=== PATIENT | male | born 1975 | race Caucasian/White ===

== ENCOUNTER 2024-07-06 13:47 | Emergency (ER) | payer OTHER ==
[2024-07-06] MEDS ORDERED: ACETAMINOPHEN 500 MG TAB ONE (14:23)
[2024-07-06] MEDS ORDERED: methocarbamoL 750 MG TAB ONE (14:23)
[2024-07-06] MEDS ORDERED: LIDOCAINE 4% PATCH ONE (14:23)
[2024-07-06] MEDS ORDERED: KETOROLAC 30 MG/ML INJ ONE (14:23)
--- NOTE | 2024-07-06 14:34 | RAD REPORT ---
EXAMINATION: LUMBAR SPINE 3 VIEWS CLINICAL INDICATION: Male, 49 years old. LBP TECHNIQUE: AP, lateral, focused lateral lumbosacral views of the lumbar spine were obtained. [id number]. COMPARISON: No prior exam. FINDINGS: For purposes of this dictation, it is assumed that there are 5 lumbar type vertebral bodies. ALIGNMENT: There is normal alignment of the lumbar spine. BONES: Mild compression deformity at L2 which appears chronic. Less than 20% loss of height is presen t. No acute compression fracture identified. DISCS: Moderate disc height loss extending from L2-3 through L5-S1. Facet degenerative changes notabl e at L5-S1. SOFT TISSUE: Moderate to large volume of colonic stool IMPRESSION: No acute lumbar spine abnormality. Chronic appearing compression deformity at L2. Degenerative disc d isease.
--- NOTE | 2024-07-06 14:36 | RAD REPORT ---
EXAMINATION: Thoracic Spine Ap/Lat CLINICAL INDICATION: Male, 49 years old. LBP COMPARISON: No prior exam. FINDINGS: No acute fracture. Mild dextroscoliotic curvature centered at T8. Mid thoracic degenerative changes with mild disc height loss and endplate spurring. This is moderate at the T6-7 and T9-10 levels. Other: n/a IMPRESSION: No acute osseous abnormality of the thoracic spine.
--- NOTE | 2024-07-06 14:41 | EDPHYS ---
Physician Documentation [facility] Name: Branden Delcid Age: 49 yrs Sex: Male : 1975 Arrival Date: 07/06/2024 Time: 13:47 Bed 9 Private MD: ED Physician Peter Urrutia HPI: 07/06 14:21 This 49 yrs old Male presents to ER via Ambulatory with complaints of Back ec2 Pain. 14:21 Patient arrives today for chronic low back pain. Patient reports back pain rating to ec2 the bilateral lower extremities. Patient reports no falls injuries or trauma. Patient reports he is on methadone for chronic pain. Patient reports no new falls injuries or trauma.. Historical: - Allergies: 14:04 No Known Allergies; cm10 - Home Meds: 14:04 methadone Oral [Active]; cm10 14:07 Wellbutrin SR 150 mg Oral tablet, sustained-release 12 hr 1 tab 2 times per day cm10 [Active]; - PMHx: 14:04 Chronic back pain; cm10 14:07 Depressive disorder; cm10 - Immunization history:: Adult Immunizations unknown. - Infectious Disease History:: Denies. - Social history:: Smoking status: Patient reports the use of cigarette tobacco products, smokes one-half pack cigarettes per day. ROS: 14:21 Constitutional: as per hpi ec2 Exam: 14:21 Constitutional: GEN: NAD Head: atraumatic Eyes: EOMI Ears: External ears are ec2 normal. CV: regular rate LUNGS: no respiratory distress ABD: non-distended SKIN: no evidence of rashes MSK: no evidence of trauma, no C/C/L-spine TTP or deformities present. Bilateral lower extremity strength intact. Vital Signs: 14:03 BP 143 / 92; Pulse 76; Resp 17; Temp 97.7(O); Pulse Ox 98% on R/A; Weight 70.76 kg; cm10 Height 5 ft. 6 in. ; Pain 4/10; 14:03 Body Mass Index 25.18 (70.76 kg, 167.64 cm) cm10 14:03 Pain Scale: Adult cm10 MDM: 14:10 Medical Screening Exam initiated ec2 14:21 Data reviewed: vital signs, nurses notes. ED course: Patient arrives today for ec2 evaluation of low back pain. Examination is unrevealing. Will give the patient medications to help with this pain and obtain radiograph. Suspect chronic pain, doubt fracture given lack of injury, possible sciatica. Patient can follow-up outpatient for outpatient MRI.. 14:40 ED course: Radiographs negative for any acute pathology. Will discharge home and have ec2 him follow-up with his primary care doctor and pain doctor. Return precautions given.. 14:44 ED course: Patient also reports he has been out of his Wellbutrin, I will represcribe ec2 this for a 1 month supply. Return precautions given.. 07/06 14:10 Order name: Lumbar Spine (3 Views) XRAY; Complete Time: 14:35 ec2 07/06 14:27 Order name: Thoracic Spine Ap/Lat; Complete Time: 14:38 EDMS Administered Medications: 14:34 Drug: Ketorolac IM 30 mg IM once Route: IM; Site: right gluteus; cm10 14:54 Follow up: Response: No adverse reaction; No change in condition ss 14:34 Drug: Acetaminophen PO 1000 mg PO once Route: PO; cm10 14:54 Follow up: Response: No adverse reaction ss 14:34 Drug: Lidoderm Topical Patch 5 % (700 mg/patch) 1 patches Topical once; leave on for 12 cm10 hours; cover most painful area; may cut into smaller pieces Route: Topical; Site: affected area; 14:34 Drug: Methocarbamol PO 750 mg PO once Route: PO; cm10 14:54 Follow up: Response: No adverse reaction ss Disposition Summary: 07/06/24 14:40 Discharge Ordered Notes: Location: Home ec2 Condition: Stable ec2 Diagnosis - Low back pain ec2 Followup: ec2 - With: Private Physician - When: - Reason: Re-evaluation by your physician Discharge Instructions: - Discharge Summary Sheet ec2 - Chronic Back Pain ec2 Forms: - Medication Reconciliation Form ec2 - Antibiotic Education ec2 - Prescription Opioid Use ec2 - Patient Portal Instructions ec2 - Leadership Thank You Letter ec2 Prescriptions: - bupropion HCl 150 mg Oral tablet, sustained-release 12 hr - take 1 tablet ORAL route 2 times per day; 60 tablet; Refills: 0, Product ec2 Selection Permitted - methocarbamol 500 mg Oral tablet - take 1 tablet ORAL route 4 times per day; 15 tablet; Refills: 0, Product ec2 Selection Permitted Signatures: Dispatcher Kallie Rangel RN RN cm10 Peter Urrutia MD MD ec2 Kandice Keys RN ss
--- NOTE | 2024-07-06 14:41 | ER ---
Nurse's Notes [facility] Name: Branden Delcid Age: 49 yrs Sex: Male : 1975 Arrival Date: 07/06/2024 Time: 13:47 Bed 9 Private MD: Diagnosis: Low back pain Presentation: 07/06 14:03 Chief complaint: Patient states: Low Back pain from an old injury 8 years ago. Pt cm10 states that over the last year the pain has been getting worse. Laying down makes the pain worse. Coronavirus screen: Client denies travel out of the [place] in the last 14 days. Ebola Screen: Patient denies travel to an Ebola-affected area in the 21 days before illness onset. Initial Sepsis Screen: Does the patient meet any 2 criteria? No. Patient's initial sepsis screen is negative. Does the patient have a suspected source of infection? No. Patient's initial sepsis screen is negative. Risk Assessment: Do you want to hurt yourself or someone else? Patient reports no desire to harm self or others. Onset of symptoms is unknown. 14:03 Method Of Arrival: Ambulatory cm10 14:03 Acuity: CHIO 4 cm10 Triage Assessment: 14:04 General: Appears in no apparent distress. uncomfortable, Behavior is calm, cooperative, cm10 appropriate for age. Pain: Complains of pain in back Pain radiates to right leg and left leg Pain currently is 4 out of 10 on a pain scale. Quality of pain is described as pressure, sharp, Pain began years ago. Aggravated by laying down. Neuro: No deficits noted. Level of Consciousness is awake, alert, obeys commands, Oriented to person, place, time, situation, Appropriate for age. Respiratory: No deficits noted. Airway is patent Respiratory effort is even, unlabored, Respiratory pattern is regular, symmetrical. Musculoskeletal: Range of motion: intact in all extremities, Reports pain in back since 1 year ago. Historical: - Allergies: 14:04 No Known Allergies; cm10 - Home Meds: 14:04 methadone Oral [Active]; cm10 14:07 Wellbutrin SR 150 mg Oral tablet, sustained-release 12 hr 1 tab 2 times per day cm10 [Active]; - PMHx: 14:04 Chronic back pain; cm10 14:07 Depressive disorder; cm10 - Immunization history:: Adult Immunizations unknown. - Infectious Disease History:: Denies. - Social history:: Smoking status: Patient reports the use of cigarette tobacco products, smokes one-half pack cigarettes per day. Screenin:05 [facility] ED Fall Risk Assessment (Adult) History of falling in the last 3 months, cm10 including since admission No falls in past 3 months (0 pts) Confusion or Disorientation No (0 pts) Intoxicated or Sedated No (0 pts) Impaired Gait No (0 pts) Mobility Assist Device Used No (0 pt) Altered Elimination No (0 pt) Score/Fall Risk Level 0 - 2 = Low Risk Oriented to surroundings, Maintained a safe environment, Hourly rounding (assess needs \T\ fall precautionary measures) done. Abuse screen: Denies threats or abuse. Denies injuries from another. Nutritional screening: No deficits noted. Tuberculosis screening: No symptoms or risk factors identified. Assessment: 14:53 General: Appears in no apparent distress. comfortable, Behavior is calm, cooperative. ss Neuro: Level of Consciousness is awake, alert, obeys commands, Oriented to person, place, time, situation. Respiratory: Airway is patent Respiratory effort is even, unlabored, Respiratory pattern is regular, symmetrical. Derm: Skin is intact, is healthy with good turgor, Skin is pink, warm \T\ dry. normal. Vital Signs: 14:03 BP 143 / 92; Pulse 76; Resp 17; Temp 97.7(O); Pulse Ox 98% on R/A; Weight 70.76 kg; cm10 Height 5 ft. 6 in. ; Pain 4/10; 14:03 Body Mass Index 25.18 (70.76 kg, 167.64 cm) cm10 14:03 Pain Scale: Adult cm10 ED Course: 13:49 Patient arrived in ED. mr 13:50 Peter Urrutia MD is Attending Physician. ec2 14:04 Triage completed. cm10 14:05 Arm band placed on right wrist. Patient placed in an exam room, on a stretcher. cm10 14:06 Patient has correct armband on for positive identification. Bed in low position. Call cm10 light in reach. Provided Education on: ER process and procedures.. 14:27 Thoracic Spine Ap/Lat In Process Unspecified. EDMS 14:29 Lumbar Spine (3 Views) XRAY In Process Unspecified. EDMS 14:33 Kallie Boston, RN is Primary Nurse. cm10 14:53 No provider procedures requiring assistance completed. Patient did not have IV access ss during this emergency room visit. Administered Medications: 14:34 Drug: Ketorolac IM 30 mg IM once Route: IM; Site: right gluteus; cm10 14:54 Follow up: Response: No adverse reaction; No change in condition ss 14:34 Drug: Acetaminophen PO 1000 mg PO once Route: PO; cm10 14:54 Follow up: Response: No adverse reaction 14:34 Drug: Lidoderm Topical Patch 5 % (700 mg/patch) 1 patches Topical once; leave on for 12 cm10 hours; cover most painful area; may cut into smaller pieces Route: Topical; Site: affected area; 14:34 Drug: Methocarbamol PO 750 mg PO once Route: PO; cm10 14:54 Follow up: Response: No adverse reaction ss Medication: 14:05 VIS not applicable for this client. cm10 Outcome: 14:40 Discharge ordered by . ec2 14:53 Discharged to home ambulatory, 14:53 Condition: good 14:53 Discharge instructions given to patient, Instructed on discharge instructions, follow up and referral plans. medication usage, Demonstrated understanding of instructions, follow-up care, medications, Prescriptions given X 2, 14:54 Patient left the ED. ss Signatures: Dispatcher [employer] EDRI Belkis Hughes, Kermit Reg Kandice Keys, RN RN Kallie Boston, RN RN cm10 Peter Urrutia MD MD ec2
[2024-07-06 15:04] VITALS: BP 143/92; TEMP 97.7; O2SAT 98
== END 2024-07-06 14:54 | disposition home or self-care (01) ==
LOC: ER 13:47
DX: M54.50 Low back pain, unspecified (principal); F32.A Depression, unspecified; F17.210 Nicotine dependence, cigarettes, uncomplicated
CPT/HCPCS: 72100; 72070; 96372; 99284; J2003